=== PATIENT | male | born 1980 | race Caucasian/White ===

== ENCOUNTER 2018-08-05 10:12 | Outpatient (CLI) | payer OTHER | END 2018-08-05 10:13 | disposition home or self-care (01) | LOC: LAB 10:12 | PROVIDERS: ATTEND Family Medicine Addiction Medicine | DX: F11.20 Opioid dependence, uncomplicated (principal); Z79.899 Other long term (current) drug therapy; Z01.89 Encounter for other specified special examinations | CPT/HCPCS: 36415; 80053; 80061; 80074; 80306; 81001; 84443; 85027; 86592; 93005; 93010 ==